=== PATIENT | female | born 1980 | race Caucasian/White ===

== ENCOUNTER 2020-11-12 14:14 | Emergency (ER) | payer OTHER ==
[2020-11-12] MEDS ORDERED: XYLOCAINE VISC100 ML EXT (15:47)
== END 2020-11-12 16:04 | disposition home or self-care (01) ==
LOC: ER1 14:14
DX: R07.0 Pain in throat (principal)
CPT/HCPCS: 70490; 99283

== ENCOUNTER 2020-11-16 14:42 | Emergency (ER) | payer OTHER ==
[~2020-11-16 14:42] MED LIST: XYLOCAINE VISC100 ML EXT
[2020-11-16] MEDS ORDERED: KEFLEX750 MG PO (21:04)
== END 2020-11-16 21:15 | disposition home or self-care (01) ==
LOC: ER1 14:42
DX: R06.02 Shortness of breath (principal); R51.9 Headache, unspecified; J02.9 Acute pharyngitis, unspecified; Z20.822 Contact with and (suspected) exposure to COVID-19; Z90.89 Acquired absence of other organs
CPT/HCPCS: 71045; 87081; 87880; 99283; U0002

== ENCOUNTER 2021-03-03 18:39 | Emergency (ER) | payer OTHER ==
[~2021-03-03 18:39] MED LIST changes: +KEFLEX750 MG PO
== END 2021-03-03 21:03 | disposition home or self-care (01) ==
LOC: ER1 18:39
DX: J06.9 Acute upper respiratory infection, unspecified (principal); Z20.822 Contact with and (suspected) exposure to COVID-19
CPT/HCPCS: 99283; U0002

== ENCOUNTER 2021-09-11 18:31 | Emergency (ER) | payer OTHER ==
[2021-09-11 21:04] LABS: HEMOGLOBIN 12.6 gm/dl (12.3-15.3); RED BLOOD COUNT 4.25 M/UL (4.00-5.10); WHITE BLOOD COUNT 8.8 K/UL (4.5-11.0)
[2021-09-11 21:23] LABS: BUN/CREATININE RATIO 18 (0-10)
[2021-09-11] MEDS ORDERED: IBUPROFEN600 MG PO (21:52)
== END 2021-09-11 22:10 | disposition home or self-care (01) ==
LOC: ER1 18:31
PROVIDERS: Physician Assistant
DX: M79.652 Pain in left thigh (principal); E66.9 Obesity, unspecified; Z91.040 Latex allergy status; X50.9XXA Other and unspecified overexertion or strenuous movements or postures, initial encounter; Z86.73 Personal history of transient ischemic attack (TIA), and cerebral infarction without residual deficits
CPT/HCPCS: 73552; 73562; 80053; 85025; 85652; 86140; 99283